=== PATIENT | male | born 1985 | race Caucasian/White ===

== ENCOUNTER 2019-07-03 08:16 | Outpatient (CLI) | payer OTHER, SELFPAY ==
--- NOTE | 2019-07-03 08:24 | CT_ITS ---
WS: [id number] CT LUMBAR SPINE TECHNIQUE: Noncontrast CT of the lumbar spine with coronal and sagittal reformatted images. CLINICAL INFORMATION: LOWER BACK PAIN COMPARISON: None. DLP: 1952.[address] scans at [facility] use at least one of these dose optimization techniques: automat ed exposure control; mA and/or kV adjustment per patient size (includes targeted exams where dose is matched to clinical indication); or iterative reconstruction. FINDINGS: Mild lumbar curve convex left. No acute compression fractures. Mild disc bulging L4-L5 and L5-S1. L1-L2: Mild annular bulging. Spinal canal and foramen are patent. L2-L3: Normal. L3-L4: Mild annular bulging with slight effacement of the ventral thecal sac. Mild facet arthropathy. Spinal canal and foramen are patent. L4-L5: Mild annular bulging with slight effacement of ventral thecal sac. Tiny shallow left pericentr al protrusion with Slight narrowing of the subarticular recess. Mild right and no significant left fo raminal narrowing. Mild facet arthropathy. L5-S1: Broad-based shallow left pericentral protrusion with slight contact of the left S1 nerve root. Mild left and no significant right foraminal narrowing. Spinal canal is patent. Visualized pelvic bony structures: Normal. Paravertebral soft tissues: Normal. CT/CT lumbar spine wo con* [id number] IMPRESSION: 1. Mild lumbar curve convex left. 2. Annular bulging L4-5 with a tiny shallow left pericentral protrusion. Sligh t narrowing of the left greater than right subarticular recess. 3. Shallow left pericentral protrusion L5-S1 slightly contacts the left S1 ner ve root. Recommend correlation left S1 nerve root symptoms. Mild left foraminal narrowing. 4. Mild facet arthropathy L3-L4 L4-L5.
== END 2019-07-03 08:17 | disposition home or self-care (01) ==
LOC: RADWPI 08:22
PROVIDERS: Family Provider Nurse Practitioner; PCP Nurse Practitioner; Visit Provider Nurse Practitioner
DX: M51.27 Other intervertebral disc displacement, lumbosacral region (principal); M51.26 Other intervertebral disc displacement, lumbar region
CPT/HCPCS: 72131

== ENCOUNTER → 2021-07-05 13:07 | Outpatient (BNVA) | payer OTHER, SELFPAY | PROVIDERS: Family Provider Nurse Practitioner; PCP Nurse Practitioner; Visit Provider Internal Medicine Cardiovascular Disease | DX: I49.9 Cardiac arrhythmia, unspecified (principal); I10 Essential (primary) hypertension; G47.33 Obstructive sleep apnea (adult) (pediatric); F32.9 Major depressive disorder, single episode, unspecified; Z87.891 Personal history of nicotine dependence | CPT/HCPCS: 93246; 99214 ==

== ENCOUNTER 2021-07-26 14:27 | Outpatient (CLI) | payer OTHER, SELFPAY ==
[2021-07-26 14:41] LABS: Basophils % 0.3 %; Eosinophils # 0.3 10^3/uL (0.0-0.8); Eosinophils % 4.1 %; Hematocrit 45.1 % (42.0-52.0); Hemoglobin 14.8 g/dL (11.7-16.6); Lymphocytes % 31.1 %; Mean Corpuscular HGB Conc 32.8 g/dL (30.0-36.0); Mean Corpuscular Volume 91.5 fl (80-94); Mean Platelet Volume 11.3 fL (7.4-10.4); Monocytes # 0.5 10^3/uL (0.2-0.9); Monocytes % 8.3 %; Neutrophils # 3.59 10^3/uL (1.8-7.7); Neutrophils % 56.2 %; Nucleated Red Blood Cells % 0 %; Platelet Count 225 10^3/cmm (130-400); Red Blood Count 4.93 10^6/uL (4.1-5.3); Red Cell Distribution Width 12.4 % (12.1-15.1); White Blood Count 6.4 10^3/uL (4.0-10.0)
[2021-07-26 15:14] LABS: Anion Gap 15.4 (5-19); Blood Urea Nitrogen 16 mg/dL (6-20); Calcium 9.8 mg/dL (8.5-10.5); Carbon Dioxide 28 mmol/L (22-29); Chloride 97 mmol/L (98-107); Glomerular Filtration Rate 84.1 mL/min (90-130); Glucose 96 mg/dL (65-115); Osmolality Calculated 283 mOsm/kg (285-295); Potassium 4.4 mmol/L (3.5-5.1); Sodium 136 mmol/L (136-145)
--- NOTE | 2021-07-26 16:48 | ECG_ITS ---
[facility] Test Date: 2021-07-26 Pat Name: Ami Silva Department: Room: Gender: Male Rehab Nursing Tech: : [id number] Requested By: Aric Prakash Order Number: [id number] Wyman MD: Davida Le M.D. Measurements Intervals [place] Rate: 65 P: 48 MN: 131 QRS: 66 QRSD: 105 T: 58 QT: 358 QTc: 373 Interpretive Statements SINUS RHYTHM Compared to ECG 01/13/2019 04:17:51 No significant changes Electronically Signed On 07-27-2021 18:05:42 CDT by Davida Le M.D. [id number] f
== END 2021-07-26 14:28 | disposition home or self-care (01) ==
LOC: RT 14:28
PROVIDERS: PCP Nurse Practitioner; Visit Provider Specialist
DX: J30.1 Allergic rhinitis due to pollen (principal)
CPT/HCPCS: 36415; 80048; 85025; 93005

== ENCOUNTER 2022-07-04 12:45 | Emergency (ER) | payer OTHER, SELFPAY ==
[2022-07-04 12:49] VITALS: BP 159/98; PULSE 76; RESP 18; TEMP 36.8; O2SAT 98; BMI 26.6
--- NOTE | 2022-07-04 14:46 | W.ED.EXTPRO ---
HPI - Extremity Problem General: Chief complaint: Extremity Problem,Nontraumatic Stated complaint: left shoulder pain Time Seen by Provider: 07/04/22 14:35 History of Present Illness: Patient is in for chronic left shoulder pain. [facility]. 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 He states that he had an x-ray last he shows me on his phone where it says that there is some widening at the AC but no acute osseous deformity. He states that he cannot have an MRI because he has a spinal stimulator placed. He reports that over the weekend he reached for a plate for his handicapped daughter and the pain started worsening. He offers that he has had numbness in the entire arm for months now. He is on gabapentin for chronic pain and nerve type pain does not seem to be helping. Associated symptoms: Deny chest pain or fever(s) Review of Systems Const: Denies: fever(s), chills or body aches Card: Denies: chest pain, palpitations, irregular heart rhythm, lightheadedness or syncope Resp: Denies: dyspnea, productive cough or non-productive cough GI: Denies: abdominal pain, nausea or vomiting : Denies: flank pain, dysuria, urinary frequency, urinary urgency or urinary hesitancy Musc: Reports: extremity pain and limited range of motion; Denies: back pain Neuro: Denies: headache(s), numbness in extremities or weakness in extremities PFSH ED PFSH: Medical History Chronic pain Erectile dysfunction HTN (hypertension) Major depressive disorder ED (obstructive sleep apnea) PTSD (post-traumatic stress disorder) Surgical History S/P appendectomy S/P cholecystectomy S/P insertion of spinal cord stimulator Social History Smoking and tobacco status: former smoker Physical Exam Const: COMMON NORMALS: no acute distress, patient oriented x3 and alert GENERAL APPEARANCE: cooperative ORIENTATION/CONSCIOUSNESS: Yes awake, Yes oriented to person, Yes oriented to place and Yes oriented to time Neck/C-Spine: COMMON NORMALS: full ROM Resp: COMMON NORMALS: normal respiratory effort, No retractions, No use of accessory muscles and clear to auscultation bilaterally EFFORT & INSPECTION: Yes symmetric chest movement AUSCULTATION: clear to auscultation bilaterally Cardio: COMMON NORMALS: regular rate, regular rhythm, S1 normal heart sound present and S2 normal heart sound present RATE: regular rate RHYTHM: regular rhythm HEART SOUNDS: S1 normal heart sound present and S2 normal heart sound present GI: COMMON NORMALS: Normal to inspection, nondistended, normoactive bowel sounds present, Soft to palpation, non-tender, No hepatosplenomegaly present, no masses and no bruits INSPECTION: Yes normal to inspection PALPATION: Yes Soft to palpation and Yes No hepatosplenomegaly present : COMMON NORMALS: Yes no CVA tenderness BLADDER/KIDNEY EXAM: Yes no CVA tenderness Back/Pelvis: COMMON NORMALS: no CVA tenderness Extremity: NARRATIVE EXTREMITY EXAM: Patient has tenderness to palpation AC joint left shoulder. No obvious bony or soft tissue deformity is appreciated. Patient has reproducible pain with palpation of the musculature surrounding the left scapula. The trapezius muscle is spasmed and palpation of this muscle even up through the neck reproduces pain complaint. Patient is able to laterally and frontally abducted the left arm to shoulder height. He does have posterior reach although he reports significant pain. Patient has equal product advisor bilateral. CSM within normal limits to distal hand. Neuro: COMMON NORMALS: patient oriented x3 SENSORIUM/ORIENTATION: Yes alert, Yes oriented to person, Yes oriented to place and Yes oriented to time Course Vital Signs: Vital signs: Vital Signs Temperature 98.3 F 07/04/22 12:49 Pulse Rate 76 07/04/22 12:49 Respiratory Rate 18 07/04/22 12:49 Blood Pressure 159/98 07/04/22 12:49 Pulse Oximetry 98 07/04/22 12:49 Oxygen Delivery Me thod 07/04/22 12:49 MDM - Extremity (Nontraumatic) Medical Decision Making This is a 36-year-old . He reports today that he is having worsening chronic left shoulder pain that is service-connected. [facility] He had a recent x-ray he is on gabapentin. I had a lengthy discussion with the patient today regarding next steps. At this point an x-ray repeat is not indicated as the patient has not had any new injury to the shoulder since the last x-ray. I recommend referral to orthopedics for continued evaluation. I offered muscle relaxant medications to help with spasming. Patient declines Toradol. Patient declines muscle relaxant medication. Patient declines orthopedics referral. Patient states that he wants his discharge papers that he will leave now. Patient is discharged in stable condition to [facility]up [facility] Discharge Plan Discharge Patient Disposition: Home Clinical Impression: Chronic left shoulder pain Condition: Stable Prescriptions: No Action cetirizine [All Day Allergy (cetirizine)] 10 mg tablet 10 mg PO DAILY eszopiclone 2 mg tablet 2 mg PO .HS gabapentin 300 mg capsule 300 mg PO DAILY lisinopril 20 mg tablet 20 mg PO DAILY omeprazole 40 mg capsule,delayed release(DR/EC) 40 mg PO DAILY doxycycline hyclate 100 mg tablet 100 mg PO BID Discharge Orders: Discharge ED (Routine); Ordered 07/04/22 Ordered By: Rosana Gil Referrals: Christa Thompson FNP [Primary Care Provider] - Discharge Diet: Usual diet Discharge Activity: Increase activity as tolerated Patient Instructions: Shoulder Pain (ED) Activity Restrictions/Additional Instructions: You declined referral to orthopedics today. You declined offer for muscle relaxant medications to help with muscle spasming. I recommend continued evaluation and management by your primary care provider for this chronic shoulder pain. Return to the ER as needed for new or worsening symptoms Coding Level of Care Code ED [employer] Systems Administrator for Michelle Polo
[2022-07-04 15:04] VITALS: BP 159/98; PULSE 76; RESP 18; TEMP 36.8; O2SAT 98
== END 2022-07-04 15:06 | disposition home or self-care (01) ==
PROVIDERS: Emergency Provider Nurse Practitioner Family; PCP Nurse Practitioner
DX: M25.512 Pain in left shoulder (principal); G89.29 Other chronic pain
CPT/HCPCS: 99282